=== PATIENT | female | born 1975 | race Two or more races ===

== ENCOUNTER 2022-11-12 16:39 | Emergency (ER) | payer BC ==
[2022-11-12 17:19] VITALS: BP 111/70; PULSE 68; RESP 18; TEMP 97.9; BMI 25.2
[2022-11-12] MEDS ORDERED: ACETAMINOPHEN 500 MG TABLET (FP) PO ONE (18:31)
[2022-11-12] MEDS ORDERED: IBUPROFEN 600 MG TABLET (FP) PO ONE ×2 (19:33→19:34)
[2022-11-12] MEDS ORDERED: ACETAMINOPHEN 500 MG TABLET (FP) ONE (19:34)
== END 2022-11-12 19:43 | disposition home or self-care (01) ==
LOC: JER 16:39 → JERFT 16:39
DX: G44.319 Acute post-traumatic headache, not intractable (principal)
CPT/HCPCS: 70450-TC; 99284-25